=== PATIENT | female | born 1975 | race African-American/Black ===

== ENCOUNTER 2016-07-18 10:32 | Emergency (ER) | payer OTHER ==
[~2016-07-18] VITALS: Ht 162.6 cm; Wt 95.3 kg
[~2016-07-18 10:32] MED LIST: ALPR1TAB2 PO; DOCU-27 PO; OXYC-323 PO; OXYC15TA60 PO; SERT50TA PO
[2016-07-18 10:40] VITALS: BP 155/88
[2016-07-18] MEDS ORDERED: FAMO-63 PO (11:20)
[2016-07-18] MEDS ORDERED: PRED50TA PO (11:20)
[2016-07-18] MEDS ORDERED: DIPH25CA58 PO (11:20)
[2016-07-18] MEDS ORDERED: TRIA15OI TP (11:20)
--- NOTE | 2016-07-18 11:21 | PHYS DOC ---
Past Medical History Past Medical History: Depression, Hypertension, Other Additional Past Medical Histor: chronic abdominal pain, gall stones Past Surgical History: , Other Additional Past Surgical Histo: carpal tunnel surgery Alcohol Use: Occasionally Drug Use: None Adult General Chief Complaint Chief Complaint: SKIN PROBLEM HPI HPI Patient is a 41 year old female with history of hypertension and depression who presents today with a rash on her bilateral lower extremities that began 2 or 3 days ago. Patient denies any new soaps or laundry detergents. Review of Systems Review of Systems Constitutional: Denies fever or chills [] Eyes: Denies change in visual acuity, redness, or eye pain [] HENT: Denies nasal congestion or sore throat [] : Denies dysuria or hematuria [] Musculoskeletal: Denies back pain or joint pain [] Integument: rash Neurologic: Denies headache, focal weakness or sensory changes [] Endocrine: Denies polyuria or polydipsia [] Allergies Allergies Allergies Coded Allergies Type Severity Reaction Last Updated Verified No Known Drug Allergies 09/23/13 No Physical Exam Physical Exam Constitutional: Well developed, well nourished, no acute distress, non-toxic appearance. [] HENT: Normocephalic, atraumatic, bilateral external ears normal, oropharynx moist, no oral exudates, nose normal. [] Skin: Inner bilateral thighs with a small amount of erythema is papular rash. Back: No tenderness, no CVA tenderness. [] Extremities: No tenderness, no cyanosis, no clubbing, ROM intact, no edema. [] Neurologic: Alert and oriented X 3, normal motor function, normal sensory function, no focal deficits noted. [] Psychologic: Affect normal, judgement normal, mood normal. [] EKG EKG [] Radiology/Procedures Radiology/Procedures [] Course & Med Decision Making Course & Med Decision Making Pertinent Labs and Imaging studies reviewed. (See chart for details) Patient has contact dermatitis rash due to unknown cause. She was given a prescription for prednisone for 5 days, triamcinolone cream Benadryl and Pepcid. She is to follow-up with her own doctor or the company laborer in 2 weeks if symptoms persist. She was provided return precautions and discharged in stable condition. Dragon Disclaimer Dragon Disclaimer This electronic medical record was generated, in whole or in part, using a voice recognition dictation system. Departure Departure Impression: Primary Impression: Contact dermatitis Disposition: 01 HOME, SELF-CARE Condition: STABLE Referrals: MIGUEL BARBER (PCP) DEENA BOUDREAUX MD Follow-up with the company laborer or your own doctor in 2 weeks if symptoms persist Patient Instructions: Contact Dermatitis, [id number] Additional Instructions: You were seen for contact dermatitis rash. Take the prescribed medicines as ordered. Follow-up with your own doctor or the provided company laborer in 2 weeks if symptoms continue. Scripts Triamcinolone Acetonide (TRIAMCINOLONE ACETONIDE 0.1% OINT) 15 Gm Oint...g. 1 ALONA TP BID for WOUND CARE, #1 TUBE MIX WITH EUCERIN DIRECTED BY PHYSICIAN Prov: MARCIO DOWNEY APRN 07/18/16 Diphenhydramine Hcl (BENADRYL) 25 Mg Capsule 1 CAP PO Q4-6HRS Y for RASH, #30 CAP 1 Refill Prov: MARCIO DOWNEY APRN 07/18/16 Famotidine (PEPCID) 20 Mg Tablet 20 MG PO DAILY for 7 Days, #7 TAB Prov: MARCIO DOWNEY APRN 07/18/16 Prednisone (PREDNISONE) 50 Mg Tablet 1 TAB PO DAILY, #5 TAB Prov: MARCIO DOWNEY APRN 07/18/16 Problem Qualifiers Primary Impression: Contact dermatitis Contact dermatitis type: unspecified Contact dermatitis trigger: unspecified trigger Qualified Codes: L25.9 - Unspecified contact dermatitis, unspecified cause MARCIO DOWNEY APRN July 18, 2016 11:20
== END 2016-07-18 11:45 | disposition home or self-care (01) ==
LOC: ER 10:32
DX: L25.9 Unspecified contact dermatitis, unspecified cause (principal); I10 Essential (primary) hypertension; G89.29 Other chronic pain
CPT/HCPCS: 99283

== ENCOUNTER 2016-11-26 13:47 | Emergency (ER) | payer OTHER ==
[~2016-11-26] VITALS: Ht 162.6 cm; Wt 81.6 kg
[~2016-11-26 13:47] MED LIST changes: +DIPH25CA58 PO; +DOCU-109 PO; -DOCU-27 PO; +FAMO-63 PO; +PRED50TA PO; +TRIA15OI TP
[2016-11-26 14:02] VITALS: BP 148/91
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
[2016-11-26] MEDS: ACETAMINOPHEN 325 MG TABLET. PO ONE (15:08)
[2016-11-26 15:15] LABS: BILIRUBIN,URINE NEGATIVE (NEG); GLUCOSE,URINE NEGATIVE (NEG); NITRITE,URINE NEGATIVE (NEG); PH,URINE 6.5; PROTEIN,URINE NEGATIVE (NEG-TRACE)
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
[2016-11-26 15:43] LABS: BACTERIA,URINE 0 /HPF (0-FEW); SQUAMOUS EPITHELIAL CELL,UR FEW /LPF; WBC,URINE OCC /HPF (0-4)
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
[2016-11-26] MEDS ORDERED: PRED20TA PO (15:51)
[2016-11-26] MEDS ORDERED: CYCL10TA2 PO (15:51)
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
[2016-11-26] MEDS ORDERED: TRIA15OI TP (16:22)
== END 2016-11-26 16:26 | disposition home or self-care (01) ==
LOC: ER 13:47
DX: S09.8XXA Other specified injuries of head, initial encounter (principal); S29.012A Strain of muscle and tendon of back wall of thorax, initial encounter; R31.9 Hematuria, unspecified; M25.511 Pain in right shoulder; I10 Essential (primary) hypertension; Y04.0XXA Assault by unarmed brawl or fight, initial encounter; Y93.89 Activity, other specified; Y99.8 Other external cause status; Y92.89 Other specified places as the place of occurrence of the external cause
CPT/HCPCS: 70450; 73030; 74176; 81001; 81025; 99285-25

== ENCOUNTER 2017-05-05 18:45 | Emergency (ER) | payer OTHER ==
[2017-05-05] MEDS: HYDROcodone/APAP 7.5/325MG 1 TAB TABLET PO ×2 (19:40)
[2017-05-05] MEDS: DOXYCYCLINE HYCLATE 100 MG TABLET PO ×2 (19:40)
== END 2017-05-05 21:05 | disposition home or self-care (01) ==
LOC: ER 18:45
DX: L03.115 Cellulitis of right lower limb (principal); M79.604 Pain in right leg; I10 Essential (primary) hypertension
CPT/HCPCS: 93971; 99284-25